=== PATIENT | female | born 1930 | race Caucasian/White ===

== ENCOUNTER → 2017-01-26 | Outpatient (CLI) | payer MEDICARE, OTHER ==
[~2017-01-26] MED LIST: ADRENOID CAPSU1 EACH PO; ALLEGRA PO; ALPRAZOLAM PO; AMIODARONE PO; ANASTROZOLE1 MG PO; ARIMIDEX1 MG; ARIMIDEX1 MG PO; ASPERDRINK81 MG PO; ASPIRIN PO; ASPIRIN81 M1 PO; BENADRYL PO; BENADRYL25 MG PO; CALAN PO; CALCIUM + D 6001 TA1 PO; CALCIUM 600 + D1 TA1 PO; CALCIUM 600 +1 EAC3 PO; CALCIUM 600 +1 EAC5 PO; CARDIZEM SR PO; CLOPIDOGREL75 MG PO; COUMADIN PO; DIPHENHYDRAMINE50 M1 PO; DIPHENHYDRAMINE50 M2 PO; FLAGYL PO; FOLIC ACID PO; IBUPROFEN400 MG PO; INDAPAMIDE2.5 M1; INDAPAMIDE2.5 M1 PO; K-DUR20 ME1 PO; KCL PO; KLOR-CON PO; LEVAQUIN PO; LIBRIUM PO; LOMOTIL WHITE2.5 MG PO; LORTAB 7.5-5001 TAB PO; LORTAB 7.51 TAB 7.5/ PO; LOW DOSE ASPIRI81 M2 PO; LOZOL PO; LOZOL2.5 M1 PO; MELATONIN3 M1 PO; MELATONIN3 MG PO; MULTI VITAMIN1 EACH PO; MULTI-DAY VITAM1 TAB PO; MULTI-VITAMIN1 EAC1 PO; PHENERGAN25 M1 PO; PLAVIX PO; PROBIOTIC1 EAC1 PO; PROCTOFOAM-HC10 G1 RC; PROTONIX PO; SKELAXIN PO; VICODIN PO; VIT B-12 PO; VITAMIN D 4001 UDTAB PO; VITAMIN D400 UNI1 PO; VITAMIN D400 UNI2 PO; XANAX0.5 MG PO; XARELTO15 MG PO; ZOVIRAX800 MG PO
--- NOTE | ~2017-01-26 | BD1 ---
[facility] A Service of [facility] & [facility] RADIOLOGY TEXT RESULTS PATIENT: DIANE BEAR LOCATION: [facility] : [birth year] UNIT #: [id number] AGE: [address]: Henry Trinidad MD SEX: F ORDER DR: [id number] [facility] [address] [place], [place] [address] [id number] O MR#: [id number] #: [id number] NAME: DIANE BEAR : 1930 SEX: F STUDY DATE/TIME: 01/26/2017 13:00 UNIT: [facility] ROOM: STUDY DESCRIPTION: BD Dexa Bone Dens 1+ Site Attending Physician: Henry Trinidad M.D. Referring Physician: Elena Price M.D. Ordering Physician: Henry Trinidad M.D. Primary Care Physician: Isabel Baer M.D. MEDICAL IMAGING REPORT This report is preliminary unless electronic signature is present EXAM DXA scan, 01/26/2017. HISTORY Status post menopause with no hormone replacement therapy. Osteopenia. Breast carcinoma. Colon carcinoma. Hypertension with blood pressure medication. Smoking history for 57 years. FINDINGS Bone mineral density in the lumbar spine from L1-L4 is 1.215 g/cm2 which is 1.5 standard deviations above the mean when compared to the young adult reference population which is within the range of normal. Bone mineral density in the left femoral neck was 0.679 g/cm2 which is 1.5 standard deviations below the mean when compared to the young adult reference population which is characteristic of osteopenia. Compared with 01/13/2011, there has been an increase in bone mineral density in the left hip of 3.9%. IMPRESSION Bone mineral density in the lumbar spine within the range of normal and within the left hip characteristic of osteopenia. Compared with 01/13/2011, there has been an increase in bone mineral density in the left hip of 3.9%. Dictated by... Seferino Naqvi M.D. THIS IS AN ELECTRONICALLY VERIFIED REPORT Seferino Naqvi M.D. at 01/27/2017 8:29 AM KRT/tmw STS. [facility] A Service of [facility] & [facility] RADIOLOGY TEXT RESULTS PATIENT: DIANE BEAR [id number] : [birth year] UNIT #: [id number] AGE: [address]: Henry Trinidad MD SEX: F ORDER DR: TD: 01/26/2017 14:11 JOB #: [id number] MEDICAL IMAGING REPORT Page 1 of 1 COPY
== END | disposition home or self-care (01) ==
LOC: CWCC 12:40
DX: Z13.820 Encounter for screening for osteoporosis (principal); Z78.0 Asymptomatic menopausal state; C50.919 Malignant neoplasm of unspecified site of unspecified female breast; M85.88 Other specified disorders of bone density and structure, other site
CPT/HCPCS: 77080

== ENCOUNTER 2017-05-06 21:17 | Emergency (ER) | payer MEDICARE, OTHER ==
[~2017-05-06 21:17] MED LIST changes: -ARIMIDEX1 MG PO; -CALCIUM 600 +1 EAC5 PO; -CARDIZEM SR PO; -CLOPIDOGREL75 MG PO; -DIPHENHYDRAMINE50 M1 PO; -MULTI VITAMIN1 EACH PO; -XARELTO15 MG PO; -ZOVIRAX800 MG PO
== END 2017-05-06 23:20 | disposition home or self-care (01) ==
LOC: SED 21:17
DX: B02.9 Zoster without complications (principal); I10 Essential (primary) hypertension; F41.9 Anxiety disorder, unspecified
CPT/HCPCS: 99283

== ENCOUNTER 2017-05-13 00:04 | Inpatient (IN) | payer MEDICARE, OTHER ==
[~2017-05-13] VITALS: Ht 170.2 cm; Wt 74.0 kg
--- NOTE | ~2017-05-13 | EKG ---
PATIENT: DIANE BEAR UNIT #: [id number] Ventricular Rate: 73 BPM Atrial Rate: 241 BPM QRS Duration: 82 ms Q-T Interval: 370 ms QTC Calculation(Bezet): 407 ms P Gorham: 50 degrees Calculated R Gorham: 41 degrees Calculated T Gorham: 36 degrees Diagnosis Line: Atrial fibrillation Diagnosis Line: Abnormal ECG Diagnosis Line: When compared with ECG of 13-MAY-2017 08:34, Diagnosis Line: Atrial fibrillation has replaced Sinus rhythm Diagnosis Line: Nonspecific T wave abnormality now evident in Diagnosis Line: Inferior leads Diagnosis Line: Confirmed by XAVIER LAMAR MD ([id number]) on Diagnosis Line: 05/17/2017 8:11:44 PM INTERPRETING MD: AZRA
--- NOTE | ~2017-05-13 | CO ---
Unit #: [id number] #: [id number] Patient: DIANE BEAR [id number] [address] [place], [place] [address] [id number] I MR#: [id number] NAME: DIANE BEAR ROOM: 547 Age: 87 Sex: F Admission Date: 05/13/2017 : 1930 Attending Physician: Sonny Gamboa M.D. Primary Care Physician: Isabel Baer M.D. CONSULTATION REPORT CHIEF COMPLAINT Adenocarcinoma of the colon, T2N1M0, stage 3B; iron deficiency anemia; breast cancer, ER positive, HER2 negative, no sign of disease; and now has a left renal mass, 1.8 cm. HISTORY OF PRESENT ILLNESS This is an 87-year-old female who was diagnosed with adenocarcinoma of the colon during November 2008. Six out of twenty lymph nodes were positive for metastatic disease. She received FOLFOX based chemotherapy. She received 50% of the dose. At present, there is no sign of disease. The last imaging was during November 2014, all normal. Recently, patient had GI bleed, received intravenous folic acid . During July 2012, she was diagnosed with breast cancer. It was 1.7 cm x 1.2 cm, ER/AL positive, HER2 negative invasive carcinoma, stage I. She had a lumpectomy and radiation. She is taking Arimidex, calcium, vitamin B. Her mammogram during May 2016 was normal. DEXA scan shows osteopenia. Patient had a colonoscopy in March of 2015, all normal. This was her last colonoscopy, basically because she is 87 years old. INTERIM HISTORY Patient had the shingles. She received, probably, Valtrex. Developed bilateral lower extremity numbness and tingling and found to have worsening of her heart rate. Now, she has atrial fibrillation. She had been taking Plavix in the past and now is taking Xarelto. Patient had a CT of the chest, PE protocol, on 05/13/2017. There is no PE. There is emphysema; however, there is a 1.8 cm left renal mass suspicious for malignancy. At present, she is comfortable. REVIEW OF SYSTEMS CONSTITUTIONAL: No fever, no chills, no sweats, no weight loss. EYES: No visual symptoms. EARS, NOSE AND THROAT: There is no runny nose or sore throat or difficulty hearing. CARDIOVASCULAR: No chest pain. No shortness of breath. No palpitations. No orthopnea. No PND. Unit #: [id number] #: [id number] Patient: DIANE BEAR RESPIRATORY: No cough. No wheezing. No hemoptysis. GASTROINTESTINAL: No nausea, vomiting, diarrhea, constipation, hematochezia or melena. GENITOURINARY: No urinary frequency, hesitancy or urgency. No blood in the urine. MUSCULOSKELETAL: No muscle or joint pain. NEUROLOGIC: No headache. No numbness or tingling. No weakness. No seizure. PSYCHIATRIC: No anxiety, depression or mood disturbance. ENDOCRINE: No excessive urination or thirst. DERMATOLOGIC: No rash or change in the skin. ALLERGIC/IMMUNOLOGIC: No symptoms. HEMATOLOGIC/LYMPHATIC: Denies any symptoms. PAST MEDICAL HISTORY Includes colon cancer, stage 3, no resection, chemo, no sign of disease; breast cancer, stage 1, lumpectomy, radiation, Arimidex, no sign of disease; anemia; hypertension; diabetes; and CVA with bilateral lower extremity numbness and tingling. ALLERGIES Allergic to penicillin and hydrochlorothiazide. SOCIAL HISTORY Used to smoke 1/2 pack per day for 30 years. Quit many years ago. Denies alcohol abuse. SURGICAL HISTORY Right lumpectomy. FAMILY HISTORY Positive for hypertension. MEDICATIONS Her current medications include: 1. Xarelto. 2. Plavix . 3. Cardizem. 4. Xanax. 5. Insulin. 6. Zovirax. 7. Tylenol. 8. Calcium. 9. Arimidex. 10. Folic acid. PHYSICAL EXAMINATION VITALS: Afebrile, pulse 108, respiratory rate 18, O2 sat 2 liters 93%; and blood pressure 153/75. GENERAL: Patient is comfortable. ECOG is 0. The patient is pleasant. HEENT: Moist mucosa. Pupils equally reactive to light. Extraocular muscles intact. Sclerae anicteric. No obvious bleeding from nasal mucosa or oral mucosa. Scalp normal. Hearing normal. NECK: No JVD. No lymphadenopathy. LYMPHATIC/HEMATOLOGIC: There is no palpable adenopathy in the neck, axilla or inguinal area. CARDIOVASCULAR: S1, S2. Regular rate and rhythm. No S3 or S4. RESPIRATORY: Chest symmetrical, normal. Clear to auscultation Unit #: [id number] #: [id number] Patient: DIANE BEAR bilaterally. No wheezes, no rales, no rhonchi. No dullness to percussion. ABDOMEN/GASTROINTESTINAL: Abdomen is soft, nontender, nondistended. No hepatosplenomegaly. EXTREMITIES: There is no clubbing, no cyanosis, no edema. No varicose veins. NEUROLOGICAL: Patient is alert, awake and oriented x3. Cranial nerves II-XII are intact. Sensory grossly intact. Motor is 4/5 in all four extremities. Gait is normal. Station is normal. Language is normal. Memory is normal. DTRs +2 in all four extremities. MUSCULOSKELETAL: No joint swelling. No bony tenderness. No muscle tenderness. SKIN: No petechiae, no rash, no ecchymosis. PSYCHIATRIC: No anxiety. No delusions or hallucinations. There is no agitation. Eye contact is normal. Affect is appropriate. There is no flight of ideas. DIAGNOSTIC STUDIES IMAGING: CT of the chest, as mentioned above. LABORATORY: WBCs 2.7, hemoglobin 9.8, MCV 110, and platelets 105. Creatinine 0.9. LFTs are normal. ASSESSMENT AND PLAN This is an 87-year-old female who has the following active issues: 1. Renal cell carcinoma. Patient most likely has a 1.8 cm mass in the left kidney, which is renal cell. I will consult Dr. Laneg. 2. Colon cancer. Patient had a multimodality treatment during 2008 including resection, FOLFOX. At present, no sign of disease. 3. Breast cancer. Patient had a lumpectomy, radiation, and Arimidex. No sign of disease. 4. Pancytopenia. This is first time. At present, will observe. I will check iron studies. In the future, she needs bone marrow biopsy to rule out MDS. I had an extensive discussion with patient and her granddaughter. Patient has, most likely, early stage renal cell carcinoma. This could be cured. Dictated by... Elena Price M.D. Nora TD: 05/15/2017 06:57 JOB #: [id number] Unit #: [id number] #: [id number] Patient: DIANE BEAR CONSULTATION REPORT Page 1 of 1 X Elena Price MD CONSULTATION REPORT
--- NOTE | ~2017-05-13 | CO ---
Unit #: [id number] #: [id number] Patient: DIANE BEAR [id number] [facility] [place] [facility]. [place], [place] [address] [id number] I MR#: [id number] NAME: DIANE BEAR ROOM: 547 Age: 87 Sex: F Admission Date: 05/14/2017 : 1930 Attending Physician: Sonny Gamboa M.D. Primary Care Physician: Isabel Baer M.D. CONSULTATION REPORT REASON FOR CONSULT Atrial fibrillation. HISTORY OF PRESENT ILLNESS The patient is an 87-year-old white female, who follows with Dr. Puentes in the office for history of paroxysmal atrial fibrillation that is questionable as the patient states that she knows that she has had that couple of times; however, the patient is not on anticoagulation and there is no EKG documentation here of atrial fibrillation in the past. She also has a history of hypertension, CVA, diabetes, chronic kidney disease, herpes zoster, and remote tobacco abuse. The patient came to the ER due to numbness and tingling in bilateral lower extremities. She states that she took her medication for her shingles roughly around 7:00 or 7:30 and by 10:30 in the evening, she began to have numbness and tingling in both of her legs, which prompted her to come to the ER at midnight on the . While in the ER, the patient was in sinus tach rhythm. She then went into atrial fibrillation with RVR with a rate of 138, and then spontaneously converted to sinus rhythm. At that time, Cardiology was not consulted; however, during her stay here on the floor, the patient has went back into atrial fibrillation and Cardiology was then consulted. The patient denies any chest pain, pressure, tightness, nausea, vomiting, diarrhea, fevers, chills, lightheadedness, or syncope. The patient states that she checks her blood pressure every day before she takes her indapamide and if her blood pressure is greater than 140/80, she does take medication, however, if it is not above that, she does not take it. She states that she takes her medication on average 1 to 2 days per week. The patient follows with Dr. Puentes in the office and states that she was due to have an echo next month. PAST MEDICAL HISTORY 1. Paroxysmal atrial fibrillation. 2. Hypertension. 3. CVA. 4. Diabetes. 5. Chronic kidney disease. 6. Herpes zoster. 7. Remote tobacco abuse. 8. Colon cancer. 9. Breast cancer. 10. Echo from 2008 that showed mild concentric LVH, EF of greater than 55%, mild to moderate MR and mild AR, RVSP of 30 to 40. Unit #: [id number] #: [id number] Patient: DIANE BEAR PAST SURGICAL HISTORY Includes; 1. Lumpectomy. 2. Hemicolectomy. 3. Colonoscopy. 4. Port placement in 2008. SOCIAL HISTORY The patient quit smoking many, many years ago. She does live alone, where she does her own cooking, cleaning, house work and has no difficulty doing these activities on a daily basis. FAMILY HISTORY Noncontributory. ALLERGIES Include penicillins, hydrochlorothiazide. HOME MEDICATIONS Include; 1. Plavix 75 mg p.o. daily. 2. Arimidex 1 mg p.o. daily. 3. Indapamide 2.5 mg p.o. daily as needed for elevated blood pressure. 4. Klor-Con 20 mEq p.o. daily. 5. Benadryl 25 mg p.o. daily. 6. Xanax 0.5 mg p.o. at bedtime. 7. Multivitamin one tab p.o. daily. 8. Folic acid 400 mcg p.o. daily. 9. Probiotic one tab p.o. daily. 10. Calcium and vitamin D 2 tabs daily. 11. Zovirax 800 mg p.o. five times a day. REVIEW OF SYSTEMS Ten point review of systems negative except for those in HPI. PHYSICAL EXAMINATION GENERAL: This is an 87-year-old white female, who is alert and oriented x3, in no apparent distress. VITAL SIGNS: Blood pressure 153/75, pulse 140, temp 98.5, and respirations 18. HEENT: Pupils are equal, round, and reactive. Oral mucosa is moist. NECK: No JVD. No thyromegaly. No lymphadenopathy. No carotid bruits. HEART: S1, S2. No S3 or S4. No clicks. No rubs. No murmurs. At this time, regular rate and rhythm. LUNGS: Clear. ABDOMEN: Soft. Bowel sounds positive. Nontender, nondistended. EXTREMITIES: No swelling. NEUROLOGICAL: No neuro deficits noted. DIAGNOSTIC STUDIES LABORATORY RESULTS: TSH 4.08. White count 2.5, hemoglobin 9.8, hematocrit 29.2, platelets 106. Sodium 135, potassium 3.5, chloride 103, CO2 of 26, BUN 11, creatinine 0.9. Glucose 83. A1c was 4.9. D-dimer of 756. IMAGING STUDIES: Chest x-ray showed no active process. CT angio of the chest was negative for PE and/or imaging. Unit #: [id number] #: [id number] Patient: DIANE BEAR Cardiovascular; EKG shows atrial fibrillation with RVR with a rate of 138, however, currently on the heart monitor, the patient does appear to be in sinus tach with a rate of 138, but it is regular with noted P waves. IMPRESSION 1. Paroxysmal atrial fibrillation with rapid ventricular response. 2. Sinus tachycardia. 3. Shingles. 4. Hypertension, takes indapamide p.r.n. 5. Cerebrovascular accident. 6. Chronic kidney disease. 7. Remote tobacco abuse. PLAN Discussed case with Dr. Roy via the phone. We will obtain records from Dr. Puentes's office to get the last office note to get more clear picture of the patient's cardiac history. We will check 2D echo for any valvular abnormalities or LV dysfunction. We will put the patient on Xarelto 50 mg p.o. daily per Dr. Roy as well as do half the Plavix dose daily per Dr. Roy. We will check labs in the morning. Further recommendations pending record review. Dictated by... Soledad Marte APRN for Shiva Roy M.D. YESI/alhaji TD: 05/15/2017 15:04 JOB #: [id number] CONSULTATION REPORT Page 1 of 1 X X CONSULTATION REPORT
--- NOTE | ~2017-05-13 | EKG ---
PATIENT: DIANE BEAR UNIT #: [id number] Ventricular Rate: 81 BPM Atrial Rate: 81 BPM P-R Interval: 168 ms QRS Duration: 76 ms Q-T Interval: 376 ms QTC Calculation(Bezet): 436 ms P [place]igeon: 66 degrees Calculated R [place]: 53 degrees Calculated T P[place]: 68 degrees Diagnosis Line: Normal sinus rhythm Diagnosis Line: Normal ECG Diagnosis Line: When compared with ECG of 13-MAY-2017 07:55, Diagnosis Line: (unconfirmed) Diagnosis Line: Sinus rhythm has replaced Atrial fibrillation Diagnosis Line: Vent. rate has decreased BY 57 BPM Diagnosis Line: ST no longer depressed in Inferior leads Diagnosis Line: ST no longer depressed in Anterior leads Diagnosis Line: Confirmed by ROSARIO BHATTI MD ([id number]) on Diagnosis Line: 05/14/2017 7:32:10 AM INTERPRETING MD: DAVY NELSON
--- NOTE | ~2017-05-13 | CR72 ---
[facility] A Service of [facility] RADIOLOGY TEXT RESULTS PATIENT: DIANE BEAR LOCATION: [place] [address] : [birth year] UNIT #: [id number] AGE: [address]: Michelle Miranda MD SEX: F ORDER DR: [id number] [facility] [address]. [place], [place] [address] [id number] I MR#: [id number] Acc #: [id number] NAME: DIANE BEAR. : 1930 SEX: F STUDY DATE/TIME: 05/13/2017 3:08 UNIT: [facility] ROOM: [id number] STUDY DESCRIPTION: CR Chest Single View Portable Attending Physician: Michelle Miranda M.D. Ordering Physician: Julissa Quarles A.P.R.N. Primary Care Physician: Isabel Baer M.D. MEDICAL IMAGING REPORT This report is preliminary unless electronic signature is present EXAM Portable chest. INDICATIONS Shortness of air today. PROCEDURE Frontal view chest. COMPARISON 03/31/2016 FINDINGS Heart size is unchanged. No dense consolidation. No pleural fluid. No pneumothorax. IMPRESSION No active process. No dense consolidation. Dictated by... Semaj Caruso M.D. THIS IS AN ELECTRONICALLY VERIFIED REPORT Semaj Caruso M.D. at 05/13/2017 9:52 PM ALEJANDRO/shannon TD: 05/13/2017 11:45 JOB #: [id number] MEDICAL IMAGING REPORT Page 1 of 1 COPY
--- NOTE | ~2017-05-13 | HP ---
Unit #: [id number] #: [id number] Patient: DIANE BEAR [id number] [place], [place] [address] [id number] I MR#: [id number] NAME: DIANE BEAR ROOM: [address] Age: 87 Sex: F Admission Date: 05/13/2017 : 1930 Attending Physician: Michelle Miranda M.D. Primary Care Physician: Isabel Baer M.D. HISTORY AND PHYSICAL CHIEF COMPLAINT Shingles, lower extremity pain. HISTORY OF PRESENT ILLNESS The patient is an 87-year-old female with a past medical history of atrial fibrillation, Herpes zoster, colon cancer, breast cancer, diabetes, cerebrovascular accident, chronic kidney disease, neuropathy, who presented to the emergency department for evaluation of the above. The patient states that she was in her usual state of health until yesterday when she developed numbness and tingling in both legs. She states that she had neuropathy in the left lower extremity but this involved the right leg as well. She is also feeling generally weak. She denies any falls. She denies any fever. No cough or cold symptoms. She states that she has been eating fine. No vomiting or diarrhea. Of note, the patient was diagnosed with shingles on 05/04/2017. She is currently on acyclovir for the shingles. She states that she has had some burning involving the left torso. She initially had blisters but those have resolved. In the emergency department chest x-ray was done and showed nothing acute. Laboratory was essentially unremarkable aside from a D-dimer of 756. CT of the chest PE protocol was done and showed no PE. Left kidney nodule concerning for malignancy was noted. The patient was going to be discharged; however, heart rate was in the 130s to 140s. She spontaneously converted to normal sinus rhythm. Heart rate is currently 77. She is being admitted to [facility] for evaluation and further treatment. PAST MEDICAL HISTORY 1. Admission to [facility] 12/05/2012 through 12/09/2012 for GI bleed. 2. Colon cancer, status post hemicolectomy. 3. Breast cancer, status post lumpectomy. 4. Diabetes. 5. Cerebrovascular accident. 6. Chronic kidney disease. 7. Atrial fibrillation, followed by Dr. Puentes, not on chronic anticoagulation. 8. Echocardiogram 11/26/2008 showed mild concentric left ventricular hypertrophy with an ejection fraction greater than 55%, mild to moderate mitral regurgitation, as well as mild aortic regurgitation Unit #: [id number] #: [id number] Patient: DIANE BEAR were noted. Right ventricular systolic pressure was elevated at 30 to 40 mmHg. PAST SURGICAL HISTORY 1. Lumpectomy. 2. Hemicolectomy. 3. Colonoscopy. 4. Port placement and removal. SOCIAL HISTORY The patient is a former smoker. She walks with a cane. Her code status is a full code. FAMILY HISTORY Notable for hypertension. ALLERGIES Penicillin and hydrochlorothiazide. HOME MEDICATIONS 1. Plavix 75 mg daily. 2. Arimidex 1 mg daily. 3. Lozol 2.5 mg p.o. daily p.r.n. 4. Potassium 20 mEq daily. 5. Diphenhydramine 25 mg daily. 6. Xanax 0.5 mg at bedtime. 7. Multivitamin daily. 8. Folic acid 400 mcg daily. 9. Probiotic daily. 10. Calcium plus D 2 tablets daily. 11. Zovirax 800 mg 5 x daily. REVIEW OF SYSTEMS A complete review of systems is negative except as indicated in the HPI. PHYSICAL EXAMINATION VITAL SIGNS: Temperature is 98.3, pulse 90, respirations 18, blood pressure 156/84, oxygen saturation 95% on room air. GENERAL: The patient is a female who is awake and alert in no acute distress. HEENT: The head is atraumatic. Mucous membranes are moist. NECK: Supple. Trachea is midline. CARDIOVASCULAR: Regular rate and rhythm. LUNGS: Clear to auscultation bilaterally with no increased work of breathing. ABDOMEN: Soft, nontender with bowel sounds present in all four quadrants. EXTREMITIES: Nontender with no pedal edema. NEUROLOGIC: Patient is awake and alert. She follows commands. She does have decreased sensation involving the left lower extremity that she states is not a new problem. PSYCH: Mood and affect are normal. Patient is cooperative. SKIN: I do not see any skin lesions involving the left torso. DIAGNOSTIC STUDIES CARDIOLOGY STUDIES: EKG shows atrial fibrillation with rapid ventricular response at a rate of 138 BPM. Subsequent EKG shows normal sinus rhythm with a rate of 81 BPM. Unit #: [id number] #: [id number] Patient: DIANE BEAR IMAGING STUDIES: CT of the chest PE protocol shows a nodule involving the left kidney concerning for renal cell carcinoma. There is no PE. Chest x-ray shows no active disease. LABORATORY STUDIES: Troponin is less than 0.05. INR is 1. Comprehensive metabolic panel notable for a sodium of 134, chloride 97, lipase 32. Complete blood count notable for white blood cell count of 3.3, hemoglobin 11.1. D-dimer 756. ASSESSMENT The patient is an 87-year-old female with: 1. Atrial fibrillation with rapid ventricular response that spontaneously converted. Heart rate is currently 82. She is followed by Dr. Puentes not currently on anticoagulation. 2. Paresthesias. The patient has residual paresthesias involving the left leg following stroke. The right-sided paresthesias are new. 3. Postherpetic neuralgia. The patient was diagnosed with shingles earlier this month. She is currently receiving acyclovir. 4. General weakness. 5. Nodule left kidney concerning for malignancy. 6. History of colon cancer, status post hemicolectomy. 7. History of breast cancer, status post lumpectomy. 8. Diabetes. 9. Cerebrovascular accident. 10. Chronic kidney disease. 11. Neuropathy. 12. Former smoker. PLAN 1. Admit to an intermediate level for observation. 2. Normal saline at 75 mL an hour. 3. Healthy heart consistent carb diet. 4. Fall precautions. 5. PT and OT to evaluate and treat. 6. TSH, B12 and Folate. 7. Monitor heart rate closely. 8. Serial cardiac enzymes. 9. Hemoglobin A1c. 10. Low dose sliding scale insulin with Accu-Cheks. 11. CT renal mass protocol with and without contrast. 12. Repeat labs in the morning. 13. Additional workup and consultants based on above. 14. SCDs for DVT prophylaxis. Dictated by Michelle Miranda M.D. CAMILLE/echo TD: 05/13/2017 13:00 JOB #: [id number] Unit #: [id number] #: [id number] Patient: DIANE BEAR HISTORY AND PHYSICAL Page 1 of 1 X Michelle Miranda MD HISTORY AND PHYSICAL
--- NOTE | ~2017-05-13 | CT16 ---
[facility] A Service of [facility] & [facility] RADIOLOGY TEXT RESULTS PATIENT: DIANE BEAR LOCATION: [facility] 547-01 : [birth year] UNIT #: [id number] AGE: [address]: Sonny Gamboa MD SEX: F ORDER DR: [id number] [facility] [address]. [place], [place] [address] [id number] I MR#: [id number] #: [id number] NAME: DIANE BEAR. : 1930 SEX: F STUDY DATE/TIME: 05/13/2017 UNIT: [facility] ROOM: [facility] STUDY DESCRIPTION: CT Angio Chest for PE Attending Physician: Sonny Gamboa M.D. Ordering Physician: Anderson [id number] Candido Rey Primary Care Physician: Isabel Baer M.D. MEDICAL IMAGING REPORT This report is preliminary unless electronic signature is present EXAM CT angiogram of the chest for pulmonary embolism 05/13/2017 1004 hours HISTORY 87-year-old woman with history of breast and colon carcinoma. Patient complains of back pain since 10:00 p.m. last night. Numbness in feet and legs. Elevated D-dimer at 07:56 with irregular heart rate. Evaluate for pulmonary embolism. COMPARISON CT chest 02/09/2012. TECHNIQUE Dynamic helical CT angiographic images were obtained from the thoracic inlet through the upper abdomen. 3-D sagittal and coronal reconstructions were performed. Contrast was Isovue-370 80 mL IV. Total exam DLP 442 mGy-cm. This CT examination was performed with one or more of the following radiation dose reduction techniques: automatic exposure control, adjustment of mA and/or kV according to patient size, and iterative reconstruction. FINDINGS Images through the thoracic inlet demonstrate a small 1.5 cm low-density cystic appearing lesion in the right lobe of thyroid without thyromegaly. This area is not included on prior chest CT. This is likely benign. There is no supraclavicular adenopathy. Images through the chest demonstrate diagnostic quality opacification of the pulmonary arteries which are normal in caliber. There are no filling defects present to suggest the presence of pulmonary emboli. There is mild ectasia of the ascending aorta measuring 3.6 cm. There is no dissection. Cardiac chambers, pericardium and esophagus are normal. [facility] A Service of [facility] & [facility] RADIOLOGY TEXT RESULTS PATIENT: DIANE BEAR LOCATION: [facility] 547-01 : [birth year] UNIT #: [id number] AGE: [address]: Sonny Gamboa MD SEX: F ORDER DR: Lung window images demonstrate emphysematous changes. There is stable linear scarring in the right middle lobe and lingula. There is no evidence of acute pulmonary density or metastasis. No effusions. Limited views through the upper abdomen demonstrate a normal appearance to the visualized portions of the liver and spleen. The pancreas is incompletely imaged. The visualized portions are normal. The adrenal glands are normal. The upper pole of the right kidney demonstrates a tiny cyst posteriorly. There appears to be an enhancing solid nodule from the superior medial margin of the left kidney measuring 1.8 cm not clearly seen on 02/09/2012. This is concerning for small renal cell carcinoma. A follow up dedicated renal mass protocol CT with multiphase pre- and postcontrast imaging is recommended. IMPRESSION 1. No evidence of pulmonary embolism. 2. Mild ectasia of the aorta without dissection. 3. Emphysematous changes with linear scar in the right middle lobe and lingula. There is no acute edema, pneumonia or evidence of metastatic disease to the lungs. 4. Limited views of the upper abdomen suggest an enhancing suspicious nodule measuring 1.8 cm from the medial upper pole left kidney not seen on CT 02/09/2012. This is suspicious for renal cell carcinoma. Further evaluation is warranted with a followup renal mass protocol CT without and with contrast multiphase imaging to exclude a small renal cell carcinoma at the left upper pole kidney. STAT * RESULT Dictated by... Mildred Leary M.D. THIS IS AN ELECTRONICALLY VERIFIED REPORT Mildred Leary M.D. at 05/14/2017 2:31 PM SEYMOUR/sailaja TD: 05/13/2017 10:58 JOB #: [id number] MEDICAL IMAGING REPORT Page 1 of 1 COPY
--- NOTE | ~2017-05-13 | EKG ---
PATIENT: DIANE BEAR UNIT #: [id number] Ventricular Rate: 138 BPM Atrial Rate: 163 BPM QRS Duration: 74 ms Q-T Interval: 336 ms QTC Calculation(Bezet): 509 ms Calculated R [place]: 56 degrees Calculated T [place]: 43 degrees Diagnosis Line: Atrial fibrillation with rapid ventricular Diagnosis Line: response Diagnosis Line: Nonspecific ST abnormality Diagnosis Line: Abnormal ECG Diagnosis Line: When compared with ECG of 31-MAR-2016 21:40, Diagnosis Line: Atrial fibrillation has replaced Sinus rhythm Diagnosis Line: Vent. rate has increased BY 65 BPM Diagnosis Line: ST now depressed in Inferior leads Diagnosis Line: ST now depressed in Anterior leads Diagnosis Line: Confirmed by ROSARIO BHATTI MD ([id number]) on Diagnosis Line: 05/14/2017 7:31:57 AM INTERPRETING MD: DAVY NELSON
--- NOTE | ~2017-05-13 | CT3 ---
[facility] A Service of [facility] RADIOLOGY TEXT RESULTS PATIENT: DIANE BEAR LOCATION: [facility] 547-01 : [birth year] UNIT #: [id number] AGE: [address]: Sonny Gamboa MD SEX: F ORDER DR: [id number] [facility] [address] [facility] [place], [place] [address] [id number] I MR#: [id number] Acc #: [id number] NAME: DIANE BEAR : 1930 SEX: F STUDY DATE/TIME: 05/15/2017 11:52 UNIT: [facility] ROOM: [facility] STUDY DESCRIPTION: CT Abd and Pelv WWo Cont Attending Physician: Sonny Gamboa M.D. Ordering Physician: Sonny Gamboa M.D. Primary Care Physician: Isabel Baer M.D. MEDICAL IMAGING REPORT This report is preliminary unless electronic signature is present EXAM CT abdomen and pelvis with and without contrast HISTORY 87-year-old female with recent chest CT for PE protocol with a questionable left renal mass concerning for renal cell carcinoma. Back pain. COMPARISON CT chest 05/13/[address] exam was performed with one or more of the following radiation dose reduction techniques: automatic control, adjustment of mA and/or kV according to patient size, and iterative reconstruction. FINDINGS Axial images form through the abdomen and pelvis pre and post contrast. Arterial phase and delayed phase imaging was performed through the kidneys, and abdomen. Precontrast imaging of the kidneys demonstrates vascular calcifications. There is a exophytic mass right kidney compatible with a large cyst. There is also a small right peripelvic cyst. Postcontrast imaging demonstrates normal corticomedullary enhancement. The area of clinical concern in the upper pole of the left kidney, fails to demonstrate a discrete mass. Reconstructed images also failed to demonstrate a focal mass in the left upper kidney. Lung bases unremarkable. Liver, spleen appear normal. Gallbladder absent. Pancreas and adrenal glands unremarkable. Visualized GI tract unremarkable. [facility] A Service of [facility] RADIOLOGY TEXT RESULTS PATIENT: DIANE BEAR [id number] [birth year] UNIT #: [id number] AGE: [address]: Sonny Gamboa MD SEX: F ORDER DR: PELVIS: Bladder uterus and adnexa unremarkable. 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 Extensive facet arthropathy. Multilevel foraminal stenosis. IMPRESSION 1. No convincing evidence of a left renal mass. No area of abnormal enhancement or mass is seen in the left kidney. 2. Right renal cortical cyst. 3. Advanced multilevel degenerative disc disease lumbar spine with degenerative scoliosis. Dictated by... Jhon Mrach M.D. THIS IS AN ELECTRONICALLY VERIFIED REPORT Jhon March M.D. at 05/16/2017 1:00 PM CHIARA/aura TD: 05/15/2017 21:43 JOB #: [id number] MEDICAL IMAGING REPORT Page 1 of 1 COPY
--- NOTE | ~2017-05-13 | EKG ---
PATIENT: DIANE BEAR UNIT #: [id number] Ventricular Rate: 64 BPM Atrial Rate: 64 BPM P-R Interval: 162 ms QRS Duration: 82 ms Q-T Interval: 430 ms QTC Calculation(Bezet): 443 ms P [place]: 64 degrees Calculated R [place]: 52 degrees Calculated T [place]: 61 degrees Diagnosis Line: Normal sinus rhythm Diagnosis Line: Normal ECG Diagnosis Line: When compared with ECG of 15-MAY-2017 12:54, Diagnosis Line: (unconfirmed) Diagnosis Line: Sinus rhythm has replaced Atrial flutter Diagnosis Line: Confirmed by XAVIER LAMAR MD ([id number]) on Diagnosis Line: 05/17/2017 8:13:13 PM INTERPRETING MD: AZRA
--- NOTE | ~2017-05-13 | CO ---
Unit #: [id number] #: [id number] Patient: DIANE BEAR [id number] [address] [address] [id number] I MR#: [id number] NAME: DIANE BEAR ROOM: 547 Age: 87 Sex: F Admission Date: 05/13/2017 : 1930 Attending Physician: Sonny Gamboa M.D. Primary Care Physician: Isabel Baer M.D. Consultation Date: 05/15/2017 CONSULTATION REPORT REASON FOR CONSULTATION Left renal mass. CONSULTING PHYSICIAN Michelle Miranda M.D. HISTORY OF PRESENT ILLNESS The patient is an 87-year-old female who presented to the emergency room on 05/13/2017 after developing numbness and tingling in both legs and feeling of general weakness. She had been recently treated for shingles. She also had some shortness of breath, chest PE protocol was performed, which revealed a possible left 1.8 cm upper pole renal mass. Her past medical history is significant for both colon cancer and breast cancer. The patient denies gross hematuria. She has also developed atrial fibrillation with rapid ventricular response and has been admitted for that. PAST MEDICAL HISTORY 1. Colon cancer, status post hemicolectomy and FOLFOX chemotherapy treated in 2008. 2. Breast cancer, stage 1 treated in 2013, status post lumpectomy and radiation. She is on Arimidex. 3. Diabetes. 4. Cerebrovascular accident. 5. Atrial fibrillation. PAST SURGICAL HISTORY 1. Colectomy. 2. Lumpectomy. 3. Port placement and removal. SOCIAL HISTORY Former smoker. FAMILY HISTORY Hypertension. ALLERGIES Medications and allergies are documented in the chart. MEDICATIONS AT HOME Plavix, Arimidex, Lozol, potassium, diphenhydramine, Xanax, multivitamin, folic acid, probiotic, calcium, and Zovirax. Unit #: [id number] #: [id number] Patient: DIANE BEAR ALLERGIES Penicillin and hydrochlorothiazide. REVIEW OF SYSTEMS Positive for shortness of breath. Positive for leg numbness. Negative for gross hematuria. Negative for flank pain. Twelve point review of systems otherwise negative. PHYSICAL EXAMINATION GENERAL: Reveals an elderly white female in no acute distress. VITAL SIGNS: Temperature 98.6, blood pressure 139/72, respirations 18, pulse 138. HEENT: Normocephalic and atraumatic. Extraocular movements are intact. NECK: Supple. No lymphadenopathy. LUNGS: Patient is breathing comfortable with symmetric chest rise. ABDOMEN: Soft, nontender, nondistended. There is no CVA tenderness. CV: She is in atrial fibrillation with rapid ventricular response. EXTREMITIES: No clubbing, cyanosis or edema. Negative Filomena sign. She is moving all extremities well. DIAGNOSTIC STUDIES IMAGING STUDIES: CT of the chest, PE protocol reveals a 1.8 cm renal mass, which is incompletely evaluated. LABORATORY STUDIES: Creatinine 0.8. ASSESSMENT AND PLAN Left renal mass. We will further evaluate with a CT of the abdomen without and with IV contrast, renal mass protocol. Our recommendations will be based on this. It is possible she could have a benign lesion. It is possible this could be a primary kidney cancer and there is a less likely possibility that this could be metastasis from one of her other malignancies. We appreciate the opportunity to participate in her care. Dictated by... Vince Martin M.D. LUPE/echo TD: 05/15/2017 12:38 JOB #: [id number] CONSULTATION REPORT Page 1 of 1 X Vince Martin MD X CONSULTATION REPORT
--- NOTE | ~2017-05-13 | EKG ---
PATIENT: DIANE BEAR UNIT #: [id number] Ventricular Rate: 126 BPM Atrial Rate: 126 BPM P-R Interval: 156 ms QRS Duration: 78 ms Q-T Interval: 352 ms QTC Calculation(Bezet): 509 ms P [place]: 70 degrees Calculated R [place]: 70 degrees Calculated T [place]: 72 degrees Diagnosis Line: Sinus tachycardia Diagnosis Line: Otherwise normal ECG Diagnosis Line: No previous ECGs available Diagnosis Line: Confirmed by ROSARIO BHATTI MD ([id number]) on Diagnosis Line: 05/14/2017 7:31:46 AM INTERPRETING MD: DAVY NELSON
--- NOTE | ~2017-05-13 | EKG ---
PATIENT: DIANE BEAR UNIT #: [id number] Ventricular Rate: 62 BPM Atrial Rate: 62 BPM P-R Interval: 180 ms QRS Duration: 88 ms Q-T Interval: 452 ms QTC Calculation(Bezet): 458 ms P [place]: 67 degrees Calculated R [place]: 43 degrees Calculated T [place]: 52 degrees Diagnosis Line: Normal sinus rhythm Diagnosis Line: Normal ECG Diagnosis Line: When compared with ECG of 15-MAY-2017 19:56, Diagnosis Line: (unconfirmed) Diagnosis Line: No significant change was found Diagnosis Line: Confirmed by XAVIER LAMAR MD ([id number]) on Diagnosis Line: 05/17/2017 8:19:11 PM INTERPRETING MD: AZRA
--- NOTE | ~2017-05-13 | DS ---
Unit #: [id number] #: [id number] Patient: DIANE RUSSELL [id number] [address] [address] [id number] I MR#: [id number] NAME: DIANE RUSSELL ROOM: 547 Age: 87 Sex: F Admission Date: 05/14/2017 : 1930 Discharge Date: 05/16/2017 Attending Physician: Sonny Gamboa M.D. Primary Care Physician: Isabel Baer M.D. DISCHARGE SUMMARY PRINCIPAL DISCHARGE DIAGNOSES 1. Atrial fibrillation with rapid ventricular response. 2. Paresthesias as a possible reaction to acyclovir. 3. Shingles. SECONDARY DIAGNOSES 1. Pancytopenia. 2. History of breast cancer. 3. Insomnia. 4. Diabetes. 5. Hypertension. 6. History of colon cancer. HISTORY OF PRESENT ILLNESS/HOSPITAL COURSE Ms. Russell is a very pleasant 87-year-old female with multiple comorbidities as previously noted. She presented to the emergency room complaining of lower extremity pain, numbness and tingling bilaterally a few hours after starting acyclovir for shingles that had also developed in the right lower extremity. The patient attributed the symptoms to the acyclovir. In the emergency room, however, she developed tachycardia with a heart rate in the 130s to 140s and she was noted to have atrial fibrillation with rapid ventricular response. She was admitted to the hospital and was started on Cardizem drip. Cardiology was consulted, Dr. Oreilly. Her heart rate continued to increase and she was then started on amiodarone drip. The patient's paresthesias resolved within a day. She was continued on acyclovir, however, she refused the medication. CT scan of the chest, PE protocol, failed to reveal any pulmonary emboli, but noted a possible mass in the left kidney. The patient's oncologist and urology were consulted, as we noted that the patient has a history of colon cancer and breast cancer, both of them currently in remission. A dedicated CT scan of the abdomen was obtained and it failed to reveal any masses in the left kidney. Some cysts were noted on the right kidney and seemed benign. Today the patient feels much better. She is now in sinus rhythm. Vital signs are temperature 97.6, heart rate 59, respiratory rate 20, blood pressure 128/62, oxygen saturation 97% on room air. The patient also was noted to have insomnia during the hospitalization and is to address with her primary care physician. She used temazepam at a dose of 30 mg last night and it helped more than the Xanax 0.5 mg that she usually takes at home. She was also noted to have pancytopenia which is chronic. 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 DISPOSITION The patient is being discharged home. Unit #: [id number] #: [id number] Patient: DIANE RUSSELL DISCHARGE CONDITION Improved. DIAGNOSTIC DATA LABORATORY: Today, white blood cell count 2.7, hemoglobin 9.9, platelets 106. DISCHARGE MEDICATIONS The patient will continue her home medications: 1. Lactobacillus acidophilus 1 capsule daily. 2. Arimidex 1 mg p.o. daily. 3. Xanax 0.5 mg p.o. at nighttime. 4. Multivitamin 1 tablet daily. 5. Calcium and vitamin D3 two tablets daily. 6. Folic acid 400 mg daily. The patient is being started on the following medications: 1. Xarelto 15 mg p.o. daily. 2. Diltiazem 120 mg p.o. b.i.d. 3. Amiodarone 200 mg p.o. b.i.d. for a week and then 200 mg p.o. daily. The patient is instructed to discontinue the following medications: 1. Indapamide. 2. Clopidogrel. 3. Potassium chloride. 4. Acyclovir. FOLLOWUP 1. The patient will be called early next week by Dr. Oreilly's office for a followup. 2. Follow up with primary care physician within a week. The patient has an appointment within the next three days. 3. Follow up with hematology/oncology within one to two weeks. Dictated by... Bhargav Tineo M.D. Meredith TD: 05/17/2017 09:14 JOB #: [id number] DISCHARGE SUMMARY Page 1 of 1 X X DISCHARGE SUMMARY
[2017-05-13 06:40] LABS: POC - CKMB 2.8 ng/mL (0.0-7.9); POC - TROPONIN <0.05 ng/mL (<=0.05)
[2017-05-13 06:51] LABS: BASOPHIL% 0.5 % (0-2.5); EOSINOPHIL% 0.4 % (0.0-7.0); HEMATOCRIT 32.7 % (35.0-45.0); HEMOGLOBIN 11.1 gm/dL (12.0-16.0); LYMPHOCYTE# 1.1 X10e3 (1.0-3.5); LYMPHOCYTE% 32.6 % (17.0-45.0); MEAN CELL VOLUME 106.5 FL (83-96); MEAN CORPUSCULAR HEMOGLOBIN 36.1 PG (28-34); MEAN CORPUSCULAR HGB CONC 33.9 g/dL (30-36); MEAN PLATELET VOLUME 12.9 FL (6.5-11.5); MONOCYTE# 0.3 X10e3 (0-1.0); NEUTROPHIL# 1.9 X10e3 (1.5-7.1); NEUTROPHIL% 58.5 % (40-75); RED BLOOD COUNT 3.07 X10e (3.90-5.30); RED CELL DISTRIBUTION WIDTH 18.4 % (11.0-15.5); WHITE BLOOD COUNT 3.3 X10e3 (4.0-10.5)
[2017-05-13 06:56] LABS: PARTIAL THROMBOPLASTIN TIME 26.4 SECONDS (23.5-31.3)
[2017-05-13 07:09] LABS: ALBUMIN SERUM 4.7 g/dL (3.5-5.0); BILIRUBIN,TOTAL 1.2 mg/dL (0.2-2.0); BUN/CREATININE RATIO 14.44; CREATININE SERUM 0.9 mg/dL (0.6-1.4); GLOM FILT RATE Estimated 57.1 mL/min (>60); POTASSIUM 3.8 mmol/L (3.5-5.1); PROTEIN TOTAL SERUM 7.3 g/dL (6.0-8.3)
[2017-05-13 07:13] LABS: DIFF IND YES; PLATELET COUNT 148 X10e3 (140-420)
[2017-05-13 07:15] LABS: ANISOCYTOSIS SL; PLATELET ESTIMATE NORMAL (NORMAL)
[2017-05-13] MEDS ORDERED: ARIMIDEX1 MG PO (08:21)
[2017-05-13] MEDS ORDERED: CLOPIDOGREL75 MG PO (08:21)
[2017-05-13] MEDS ORDERED: LOZOL PO (08:22)
[2017-05-13] MEDS ORDERED: DIPHENHYDRAMINE50 M1 PO (08:23)
[2017-05-13] MEDS ORDERED: KCL PO (08:23)
[2017-05-13] MEDS ORDERED: ALPRAZOLAM PO (08:25)
[2017-05-13] MEDS ORDERED: MULTI VITAMIN1 EACH PO (08:26)
[2017-05-13] MEDS ORDERED: FOLIC ACID PO (08:28)
[2017-05-13] MEDS ORDERED: CALCIUM 600 +1 EAC5 PO (08:28)
[2017-05-13] MEDS ORDERED: PROBIOTIC1 EAC1 PO (08:28)
[2017-05-13] MEDS ORDERED: ZOVIRAX800 MG PO (08:29)
[2017-05-13 08:45] LABS: POC - CKMB 1.5 ng/mL (0.0-7.9); POC - TROPONIN <0.05 ng/mL (<=0.05)
[2017-05-13 09:48] LABS: FOLATE (FOLIC ACID) >23.2 ng/mL (>5.8)
[2017-05-13 15:19] LABS: %MB 4.1 % (0.0-4.0); MB 3.2 ng/ml
[2017-05-13 20:54] LABS: CK TOTAL 49 IU/L (26-140)
[2017-05-14 06:57] LABS: HEMATOCRIT 29.2 % (35.0-45.0); HEMOGLOBIN 9.8 gm/dL (12.0-16.0); MEAN CELL VOLUME 109.1 FL (83-96); MEAN CORPUSCULAR HEMOGLOBIN 36.6 PG (28-34); MEAN CORPUSCULAR HGB CONC 33.6 g/dL (30-36); MEAN PLATELET VOLUME 12.5 FL (6.5-11.5); RED BLOOD COUNT 2.68 X10e (3.90-5.30); RED CELL DISTRIBUTION WIDTH 18.7 % (11.0-15.5); WHITE BLOOD COUNT 2.5 X10e3 (4.0-10.5)
[2017-05-14 07:39] LABS: ALBUMIN SERUM 4.1 g/dL (3.5-5.0); BUN/CREATININE RATIO 12.22; CALCIUM SERUM 9.4 mg/dL (8.4-10.2); CREATININE SERUM 0.9 mg/dL (0.6-1.4); GLOM FILT RATE Estimated 57.1 mL/min (>60); POTASSIUM 3.5 mmol/L (3.5-5.1); PROTEIN TOTAL SERUM 6.5 g/dL (6.0-8.3)
[2017-05-15 05:59] LABS: BASOPHIL% 0.4 % (0-2.5); EOSINOPHIL% 0.5 % (0.0-7.0); HEMATOCRIT 29.5 % (35.0-45.0); HEMOGLOBIN 9.9 gm/dL (12.0-16.0); LYMPHOCYTE# 0.8 X10e3 (1.0-3.5); LYMPHOCYTE% 23.8 % (17.0-45.0); MEAN CELL VOLUME 109.9 FL (83-96); MEAN CORPUSCULAR HEMOGLOBIN 36.7 PG (28-34); MEAN CORPUSCULAR HGB CONC 33.4 g/dL (30-36); MEAN PLATELET VOLUME 13.1 FL (6.5-11.5); MONOCYTE# 0.3 X10e3 (0-1.0); MONOCYTE% 9.1 % (3.0-12.0); NEUTROPHIL# 2.2 X10e3 (1.5-7.1); NEUTROPHIL% 66.2 % (40-75); PLATELET COUNT 115 X10e3 (140-420); RED BLOOD COUNT 2.68 X10e (3.90-5.30); RED CELL DISTRIBUTION WIDTH 18.9 % (11.0-15.5); WHITE BLOOD COUNT 3.4 X10e3 (4.0-10.5)
[2017-05-15 06:09] LABS: DIFF IND YES
[2017-05-15 06:18] LABS: FERRITIN 57 ng/mL (11-307)
[2017-05-15 06:48] LABS: ALBUMIN SERUM 3.7 g/dL (3.5-5.0); BILIRUBIN,TOTAL 1.4 mg/dL (0.2-2.0); BUN/CREATININE RATIO 17.5; CALCIUM SERUM 9.1 mg/dL (8.4-10.2); CREATININE SERUM 0.8 mg/dL (0.6-1.4); GLOM FILT RATE Estimated 65.9 mL/min (>60); MAGNESIUM 1.7 mg/dL (1.6-3.0); POTASSIUM 3.5 mmol/L (3.5-5.1)
[2017-05-15 06:50] LABS: ANISOCYTOSIS MOD; PLATELET ESTIMATE NORMAL (NORMAL)
[2017-05-15 06:51] LABS: MICROCYTOSIS SL; OVALOCYTES PRESENT
[2017-05-15 08:39] LABS: IRON SERUM 83 ug/dL (28-170); TOTAL IRON BINDING CAPACITY 326 ug/dL (269-535); TRANSFERRIN 233 mg/dL (192-382); TRANSFERRIN SATURATION 25 % (20-50)
[2017-05-16 06:17] LABS: CALCIUM SERUM 9.2 mg/dL (8.4-10.2); GLOM FILT RATE Estimated 50.3 mL/min (>60); POTASSIUM 4.2 mmol/L (3.5-5.1)
[2017-05-16 08:11] LABS: HEMATOCRIT 29.7 % (35.0-45.0); HEMOGLOBIN 9.9 gm/dL (12.0-16.0); MEAN CELL VOLUME 110.4 FL (83-96); MEAN CORPUSCULAR HEMOGLOBIN 36.8 PG (28-34); MEAN CORPUSCULAR HGB CONC 33.3 g/dL (30-36); MEAN PLATELET VOLUME 13.1 FL (6.5-11.5); RED BLOOD COUNT 2.69 X10e (3.90-5.30); RED CELL DISTRIBUTION WIDTH 19.2 % (11.0-15.5); WHITE BLOOD COUNT 2.7 X10e3 (4.0-10.5)
[2017-05-16] MEDS ORDERED: XARELTO15 MG PO (12:14)
[2017-05-16] MEDS ORDERED: CARDIZEM SR PO (12:15)
[2017-05-16] MEDS ORDERED: AMIODARONE PO (12:15)
== END 2017-05-16 13:35 | disposition home or self-care (01) | DRG 309 ==
LOC: CED 00:04 → CEDOF 08:23 → CED 08:54 → CEDOF 15:18 → C5B 15:18 → CEDOF 05-14 12:23 → C5B 05-14 12:23
PROVIDERS: Emergency Medicine; Family Medicine; Internal Medicine; Internal Medicine Hematology; Nurse Practitioner
PROC: B32TYZZ Computerized Tomography (CT Scan) of Left Pulmonary Artery using Other Contrast (ICD-10-PCS; principal; 2017-05-14)
PROC: B32SYZZ Computerized Tomography (CT Scan) of Right Pulmonary Artery using Other Contrast (ICD-10-PCS; 2017-05-14)
PROC: B24BZZZ Ultrasonography of Heart with Aorta (ICD-10-PCS; 2017-05-15)
DX: I48.0 Paroxysmal atrial fibrillation (principal); B02.29 Other postherpetic nervous system involvement; D61.818 Other pancytopenia; E11.22 Type 2 diabetes mellitus with diabetic chronic kidney disease; R00.0 Tachycardia, unspecified; R20.9 Unspecified disturbances of skin sensation; T37.5X5A Adverse effect of antiviral drugs, initial encounter; Y92.9 Unspecified place or not applicable; G47.00 Insomnia, unspecified; E11.40 Type 2 diabetes mellitus with diabetic neuropathy, unspecified; I12.9 Hypertensive chronic kidney disease with stage 1 through stage 4 chronic kidney disease, or unspecified chronic kidney disease; N18.9 Chronic kidney disease, unspecified; N28.1 Cyst of kidney, acquired; Z87.891 Personal history of nicotine dependence; N28.89 Other specified disorders of kidney and ureter; Z90.49 Acquired absence of other specified parts of digestive tract; Z86.73 Personal history of transient ischemic attack (TIA), and cerebral infarction without residual deficits; Z88.8 Allergy status to other drugs, medicaments and biological substances; Z88.0 Allergy status to penicillin; Z85.3 Personal history of malignant neoplasm of breast; Z85.038 Personal history of other malignant neoplasm of large intestine; Z82.49 Family history of ischemic heart disease and other diseases of the circulatory system; I48.92 Unspecified atrial flutter; J44.9 Chronic obstructive pulmonary disease, unspecified
CPT/HCPCS: 71010; 71275; 74178; 80048; 80053; 82550; 82553; 82607; 82728; 82746; 82947; 83036; 83540; 83550; 83605; 83690; 83735; 84443; 84484; 85025; 85027; 85379; 85610; 85730; 93005; 93306; 94762; 97161; 97166; 99291; G8987-GO; G8988-GO; G8989-GO; G8990-GP; G8991-GP; G8992-GP; J0282; J3490; Q9967

== ENCOUNTER → 2017-06-18 | Outpatient (CLI) | payer MEDICARE, OTHER ==
[~2017-06-18] MED LIST changes: +ARIMIDEX1 MG PO; +CALCIUM 600 +1 EAC5 PO; +CARDIZEM SR PO; +CLOPIDOGREL75 MG PO; +DIPHENHYDRAMINE50 M1 PO; +MULTI VITAMIN1 EACH PO; +XARELTO15 MG PO; +ZOVIRAX800 MG PO
--- NOTE | ~2017-06-18 | MY26 ---
[facility] A Service of [facility] RADIOLOGY TEXT RESULTS PATIENT: DIANE BEAR LOCATION: [facility] : [birth year] UNIT #: [id number] AGE: [address]: Elena Price MD SEX: F ORDER DR: [id number] [facility] [address] [place], [place] [address] [id number] O MR#: [id number] Acc #: [id number] NAME: DIANE BEAR. : 1930 SEX: F STUDY DATE/TIME: 06/18/2017 12:31 UNIT: [facility] ROOM: STUDY DESCRIPTION: [facility] DIAGNOSTIC W/ CAD BILAT Attending Physician: Elena Price M.D. Referring Physician: Henry Trinidad M.D. Ordering Physician: Elena Price M.D. Primary Care Physician: Isabel Baer M.D. MEDICAL IMAGING REPORT This report is preliminary unless electronic signature is present EXAM Bilateral digital diagnostic mammogram with CAD DATE 06/18/2017 HISTORY 87-year-old female with history of right breast cancer diagnosed in 2011. History of lumpectomy and radiation therapy. No current complaints. COMPARISON Bilateral diagnostic mammogram 06/18/2016, 06/10/2015, 06/08/2014. FINDINGS CC, MLO views were obtained of each breast and true ML view was obtained of the right breast. The study was performed utilizing digital technique and reviewed with an FDA-approved CAD device. Scattered fibroglandular densities are present bilaterally. Architectural distortion and parenchymal density and skin thickening within the right breast consistent with a history of lumpectomy and radiation therapy. The right breast findings appear stable. No new or developing nodule is seen on either side. Benign calcifications are present bilaterally. No suspicious clustered microcalcification. IMPRESSION BIRADS 2. Benign findings. Post lumpectomy and radiation therapy changes in the right breast. No feature suspicious for recurrent malignancy. Routine bilateral screening mammogram is recommended in 1 year. The findings and recommendations were discussed with the patient today in the radiology department. [facility] A Service of [facility] RADIOLOGY TEXT RESULTS PATIENT: DIANE BEAR LOCATION: [facility] : [birth year] UNIT #: [id number] AGE: [address]: Elena Price MD SEX: F ORDER DR: Patients over the age of 40 are entered into a reminder system with target due date for the next mammogram. A result letter will also be sent to the patient. BIRADS: 2, benign findings. Dictated by... Emily Bueno M.D. THIS IS AN ELECTRONICALLY VERIFIED REPORT Emily Bueno M.D. at 06/23/2017 3:26 PM URMILA/aura TD: 06/19/2017 00:17 JOB #: [id number] MEDICAL IMAGING REPORT Page 1 of 1 COPY
== END | disposition home or self-care (01) ==
LOC: CMAM 11:27
DX: Z08 Encounter for follow-up examination after completed treatment for malignant neoplasm (principal); Z85.3 Personal history of malignant neoplasm of breast; Z92.3 Personal history of irradiation; Z98.890 Other specified postprocedural states
CPT/HCPCS: G0204